=== PATIENT | female | born 1945 ===

== ENCOUNTER 2018-11-20 15:11 | Emergency (ER) | payer MEDICARE, OTHER ==
[~2018-11-20] VITALS: Ht 165.1 cm; Wt 113.4 kg
--- OUTSIDE RECORDS SUMMARY | ~2018-11-20 | XMS | Clinical Summary ---
Demographics + + + | Address | [address] | | | [place] [address] | + + + | Home Phone | | + + + | Preferred Language | Unknown | + + + | Marital Status | Single | + + + | Nondenominational Affiliation | 1073 | + + + | Race | Unknown | + + + | Ethnic Group | Unknown | + + + Author + + + | Author | [facility] | | | and [place] | + + + | Organization | [facility] | | | and [place] | + + + | Address | Unknown | + + + | Phone | Unavailable | + + + Support + + + + + | Name | Relationship | Address | Phone | + + + + + | Pham Carlson | ECON | [address] | | | | | [address] [facility] [place] | | | | | [address] | | + + + + + | David Roa | ECON | Unknown | | | M/Ana Paula M | | | | + + + + + Care Team Providers + +------+ + | Care Bandage Maker Name | Role | Phone | + +------+ + | Gabriel Nunez MD | PP | | + +------+ + Allergies + + + + + + | Active Allergy | Reactions | Severity | Noted | Comments | | | | | Date | | + + + + + + | Hydrochlorothiazide | | | 06/04/20 | | | | | | 17 | | + + + + + + Medications + + + +---------+------+------+-------+ | Medication | Sig | Dispensed | Refills | Star | End | Statu | | | | | | t | Date | s | | | | | | Date | | | + + + +---------+------+------+-------+ | amLODIPine | Take 10 mg by mouth | | 0 | | | Activ | | (NORVASC) 10 MG | Daily. | | | | | e | | tablet | | | | | | | + + + +---------+------+------+-------+ | atenolol | Take 25 mg by mouth | | 0 | | | Activ | | (TENORMIN) 25 mg | Daily. | | | | | e | | tablet | | | | | | | + + + +---------+------+------+-------+ | cyanocobalamin | Take 5,000 mcg by | | 0 | | | Activ | | (VITAMIN B-12) 1000 | mouth Daily. | | | | | e | | MCG tablet | | | | | | | + + + +---------+------+------+-------+ | | Take by mouth. Take | | 0 | | | Activ | | B-Nberyspbaerh-Ohpxp | 1/2 tablet daily | | | | | e | | (DEPLIN 15 PO) | | | | | | | + + + +---------+------+------+-------+ | FLUoxetine | Take 40 mg by mouth | | 0 | | | Activ | | (PROZAC) 40 MG | Daily. | | | | | e | | capsule | | | | | | | + + + +---------+------+------+-------+ | gabapentin | Take 300 mg by mouth | | 0 | | | Activ | | (NEURONTIN) 300 mg | 2 times daily. | | | | | e | | capsule | | | | | | | + + + +---------+------+------+-------+ | gemfibrozil | Take 600 mg by mouth | | 0 | | | Activ | | (LOPID) 600 mg | 2 times daily | | | | | e | | tablet | (before meals). | | | | | | + + + +---------+------+------+-------+ | pyridoxine | Take 100 mg by mouth | | 0 | | | Activ | | (VITAMIN B-6) 100 mg | Daily. | | | | | e | | tabletIndications: | | | | | | | | Chronic kidney | | | | | | | | disease, stage III | | | | | | | | (moderate) (HCC), | | | | | | | | Essential | | | | | | | | hypertension, | | | | | | | | benign, Mixed | | | | | | | | hyperlipidemia | | | | | | | + + + +---------+------+------+-------+ | fish oil 1,000 mg | Take 1,000 mg by | | 0 | | | Activ | | capsuleIndications: | mouth 2 times daily. | | | | | e | | Chronic kidney | | | | | | | | disease, stage III | | | | | | | | (moderate) (HCC), | | | | | | | | Essential | | | | | | | | hypertension, | | | | | | | | benign, Mixed | | | | | | | | hyperlipidemia | | | | | | | + + + +---------+------+------+-------+ | ergocalciferol | Take 1 capsule by | 30 | 0 | 07/ | | Activ | | (VITAMIN D-2) 50,000 | mouth Twice a week. | capsule | | 6/20 | | e | | units | | | | 18 | | | | capsuleIndications: | | | | | | | | Chronic kidney | | | | | | | | disease, stage III | | | | | | | | (moderate) (HCC), | | | | | | | | Essential | | | | | | | | hypertension, | | | | | | | | Hypertriglyceridemia | | | | | | | | , Metabolic syndrome | | | | | | | + + + +---------+------+------+-------+ | lisinopril | Take 1 tablet by | 90 | 3 | 01/18 | | Activ | | (PRINIVIL,ZESTRIL) | mouth Daily. | tablet | | 01/07 | | e | | 30 MG | | | | 18 | | | | tabletIndications: | | | | | | | | Chronic kidney | | | | | | | | disease, stage III | | | | | | | | (moderate) (HCC), | | | | | | | | Essential | | | | | | | | hypertension, | | | | | | | | Hypertriglyceridemia | | | | | | | | , Metabolic syndrome | | | | | | | + + + +---------+------+------+-------+ | calcium, as | Take 600 mg by mouth | | 0 | | | Activ | | carbonate, (CALCIUM | Daily. | | | | | e | | 600) 600 MG | | | | | | | | TABSIndications: | | | | | | | | Essential | | | | | | | | hypertension, | | | | | | | | Chronic kidney | | | | | | | | disease, stage III | | | | | | | | (moderate) (HCC), | | | | | | | | Hypertriglyceridemia | | | | | | | | , Metabolic syndrome | | | | | | | + + + +---------+------+------+-------+ | chlorthalidone 25 | Take 1 tablet by | 60 | 5 | 04/0 | | Activ | | mg tablet | mouth Daily. | tablet | | 08/09 | | e | | | | | | 19 | | | + + + +---------+------+------+-------+ Active Problems + + + | Problem | Noted Date | + + + | Chronic kidney disease, stage III (moderate) | 06/10/2017 | + + + | Anxiety | 06/04/2017 | + + + | Depression | 06/04/2017 | + + + | Fuchs' corneal dystrophy | 06/04/2017 | + + + | Essential hypertension | 06/04/2017 | + + + | Hypertriglyceridemia | 06/04/2017 | + + + | Hypokalemia | 06/04/2017 | + + + | Impaired fasting glucose | 06/04/2017 | + + + | OCD (obsessive compulsive disorder) | 06/04/2017 | + + + Resolved Problems + + + + | Problem | Noted | Resolved | | | Date | Date | + + + + | Renal insufficiency | 06/04/20 | | | | 17 | 8 | + + + + Encounters +--------+ + + + + | Date | Type | Specialty | Care Team | Description | +--------+ + + + + | 10/19/ | Off-Site | | Maggie Iglesias | Essential | | 2018 | Visit | | M DO | hypertension | | | | | | (Primary Dx); | | | | | | Chronic kidney | | | | | | disease, stage III | | | | | | (moderate) (HCC); | | | | | | Hypertriglyceridemia | | | | | | ; Metabolic syndrome | +--------+ + + + + | 10/16/ | Abstract | | Maggie Iglesias | | | 2018 | | | M, DO | | +--------+ + + + + from Last 3 Months Family History + + +------+ + | Medical History | Relation | Name | Comments | + + +------+ + | Abdominal aortic | Father | | | | aneurysm | | | | + + +------+ + | Heart disease | Father | | | + + +------+ + | Diabetes | Mother | | | + + +------+ + | Other (see comment) | Mother | | sepsis | + + +------+ + | Kidney disease | Neg Hx | | | + + +------+ + + +------+ + + | Relation | Name | Status | Comments | + +------+ + + | Father | | | | | | | (Age | | | | | 88) | | + +------+ + + | Mother | | | | | | | (Age | | | | | 85) | | + +------+ + + Social History + +-------+ +--------+------+ | Tobacco Use | Types | Packs/Day | Years | Date | | | | | Used | | + +-------+ +--------+------+ | Never Smoker | | | | | + +-------+ +--------+------+ + +---+---+---+ | Smokeless Tobacco: | | | | | Never Used | | | | + +---+---+---+ + + +---------+ + | Alcohol Use | Drinks/We | oz/Week | Comments | | | ek | | | + + +---------+ + | No | | | | + + +---------+ + + + + | Sex Assigned at | Date Recorded | | | | + + + | Not on file | | + + + + + + + | Job Start Date | Occupation | Industry | + + + + | Not on file | Not on file | Not on file | + + + + + + + + | Travel History | Travel Start | Travel End | + + + + + + | No recent travel history available. | + + Last Filed Vital Signs + + + + | Vital Sign | Reading | Time Taken | + + + + | Blood Pressure | 190/60 | 10/19/20181607 PDT | + + + + | Pulse | 104 | 08/27/20171407 PST | + + + + | Temperature | 36 C (96.8 F) | 10/19/20181607 PDT | + + + + | Respiratory Rate | 16 | 08/27/20171407 PST | + + + + | Oxygen Saturation | 94% | 08/27/20171407 PST | + + + + | Inhaled Oxygen | - | - | | Concentration | | | + + + + | Weight | 105.4 kg (232 lb 5.8 | 10/19/20181607 PDT | | | oz) | | + + + + | Height | 162.6 cm (5' 4") | 08/27/20171407 PST | + + + + | Body Mass Index | 39.89 | 08/27/20171407 PST | + + + + Plan of Treatment +--------+ + + + + | Date | Type | Specialty | Care Team | Description | +--------+ + + + + | 05/17/ | Off-Site | | Maggie Iglesias | | | 2018 | Visit | | DO [address] | | | | | | [address] | | | | | | [place] | | | | | | [address] | | | | | | | | +--------+ + + + + + + + + + | Health Maintenance | Due Date | Last Done | Comments | + + + + + | Hepatitis C | | | | | Screening | 6 | | | + + + + + | Vaccine: | | | | | Dtap/Tdap/Td (1 - | 5 | | | | Tdap) | | | | + + + + + | Breast Cancer | | | | | Screening (Ages | 6 | | | | 50-74) | | | | + + + + + | Colorectal Cancer | | | | | Screening | 6 | | | | (Colonoscopy) | | | | + + + + + | Vaccine: Zoster (1 | | | | | of 2) | 6 | | | + + + + + | Adult Annual | | | | | Wellness Visit | 5 | | | + + + + + | Vaccine: | | 06/03/2017 | | | Pneumococcal 65+ | 8 | | | | Low/Medium Risk (2 | | | | | of 2 - PCV13) | | | | + + + + + | Vaccine: Influenza | | 06/03/2017, 07/08/2009 | | | (Season Ended) | 9 | | | + + + + + Procedures + +--------+ + + + | Procedure Name | Priori | Date/Time | Associated Diagnosis | Comments | | | ty | | | | + +--------+ + + + | LABS - EXTERNAL SCAN | | 10/15/2018 | | Results for this | | | | 0:00 PDT | | procedure are in the | | | | | | results section. | + +--------+ + + + | EXTERNAL LAB: | Routin | 10/15/2018 | | Results for this | | VITAMIN D, | e | | | procedure are in the | | 25-HYDROXY | | | | results section. | + +--------+ + + + | EXTERNAL LAB: LEVI | Routin | 10/15/2018 | | Results for this | | INTACT | e | | | procedure are in the | | | | | | results section. | + +--------+ + + + | EXTERNAL LAB: SONAL | Routin | 10/15/2018 | | Results for this | | | e | | | procedure are in the | | | | | | results section. | + +--------+ + + + | EXTERNAL LAB: | Routin | 10/15/2018 | | Results for this | | GLUCOSE | e | | | procedure are in the | | | | | | results section. | + +--------+ + + + | EXTERNAL LAB: ALT | Routin | 10/15/2018 | | Results for this | | | e | | | procedure are in the | | | | | | results section. | + +--------+ + + + | EXTERNAL LAB: AST | Routin | 10/15/2018 | | Results for this | | | e | | | procedure are in the | | | | | | results section. | + +--------+ + + + | EXTERNAL LAB: | Routin | 10/15/2018 | | Results for this | | ALKALINE PHOSPHATASE | e | | | procedure are in the | | | | | | results section. | + +--------+ + + + | EXTERNAL LAB: | Routin | 10/15/2018 | | Results for this | | BILIRUBIN, TOTAL | e | | | procedure are in the | | | | | | results section. | + +--------+ + + + | EXTERNAL LAB: | Routin | 10/15/2018 | | Results for this | | ALBUMIN | e | | | procedure are in the | | | | | | results section. | + +--------+ + + + | EXTERNAL LAB: | Routin | 10/15/2018 | | Results for this | | PROTEIN, TOTAL | e | | | procedure are in the | | | | | | results section. | + +--------+ + + + | EXTERNAL LAB: | Routin | 10/15/2018 | | Results for this | | PHOSPHORUS | e | | | procedure are in the | | | | | | results section. | + +--------+ + + + | EXTERNAL LAB: | Routin | 10/15/2018 | | Results for this | | CALCIUM | e | | | procedure are in the | | | | | | results section. | + +--------+ + + + | EXTERNAL LAB: CBC | Routin | 10/15/2018 | | Results for this | | | e | | | procedure are in the | | | | | | results section. | + +--------+ + + + | EXTERNAL LAB: EGFR | Routin | 10/15/2018 | | Results for this | | | e | | | procedure are in the | | | | | | results section. | + +--------+ + + + | EXTERNAL LAB: | Routin | 10/15/2018 | | Results for this | | CREATININE | e | | | procedure are in the | | | | | | results section. | + +--------+ + + + | EXTERNAL LAB: CARBON | Routin | 10/15/2018 | | Results for this | | DIOXIDE | e | | | procedure are in the | | | | | | results section. | + +--------+ + + + | EXTERNAL LAB: | Routin | 10/15/2018 | | Results for this | | CHLORIDE | e | | | procedure are in the | | | | | | results section. | + +--------+ + + + | EXTERNAL LAB: | Routin | 10/15/2018 | | Results for this | | POTASSIUM | e | | | procedure are in the | | | | | | results section. | + +--------+ + + + | EXTERNAL LAB: SODIUM | Routin | 10/15/2018 | | Results for this | | | e | | | procedure are in the | | | | | | results section. | + +--------+ + + + from Last 3 Months Results External Lab: BUN (10/15/2018) + +--------+ + + + | Component | Value | Ref Range | Performed | Pathologist | | | | | At | Signature | + +--------+ + + + | BUN, | 24 (A) | 6 - 23 | EXTERNAL | | | External | | | LAB | | + +--------+ + + + + + | Resulting Agency Comment | + + | [facility] | + + + +---------+ + + | Performing | Address | City/State/Zipcode | Phone Number | | Organization | | | | + +---------+ + + | EXTERNAL LAB | | | | + +---------+ + + External Lab: Glucose (10/15/2018) + +---------+ + + + | Component | Value | Ref Range | Performed | Pathologist | | | | | At | Signature | + +---------+ + + + | Glucose, | 133 (A) | 70 - 100 | EXTERNAL | | | External | | | LAB | | + +---------+ + + + + + | Resulting Agency Comment | + + | [facility] | + + + +---------+ + + | Performing | Address | City/State/Zipcode | Phone Number | | Organization | | | | + +---------+ + + | EXTERNAL LAB | | | | + +---------+ + + External Lab: ALT (10/15/2018) + +-------+ + + + | Component | Value | Ref Range | Performed | Pathologist | | | | | At | Signature | + +-------+ + + + | ALT, | 28 | 7 - 52 | EXTERNAL | | | External | | | LAB | | + +-------+ + + + + + | Resulting Agency Comment | + + | [facility] | + + + +---------+ + + | Performing | Address | City/State/Zipcode | Phone Number | | Organization | | | | + +---------+ + + | EXTERNAL LAB | | | | + +---------+ + + External Lab: AST (10/15/2018) + +-------+ + + + | Component | Value | Ref Range | Performed | Pathologist | | | | | At | Signature | + +-------+ + + + | AST, | 27 | 13 - 39 | EXTERNAL | | | External | | | LAB | | + +-------+ + + + + + | Resulting Agency Comment | + + | [facility] | + + + +---------+ + + | Performing | Address | City/State/Zipcode | Phone Number | | Organization | | | | + +---------+ + + | EXTERNAL LAB | | | | + +---------+ + + External Lab: Alkaline Phosphatase (10/15/2018) + +-------+ + + + | Component | Value | Ref Range | Performed | Pathologist | | | | | At | Signature | + +-------+ + + + | ALP, | 90 | 31 - 130 | EXTERNAL | | | External | | | LAB | | + +-------+ + + + + + | Resulting Agency Comment | + + | [facility] | + + + +---------+ + + | Performing | Address | City/State/Zipcode | Phone Number | | Organization | | | | + +---------+ + + | EXTERNAL LAB | | | | + +---------+ + + External Lab: Bilirubin, Total (10/15/2018) + +-------+ + + + | Component | Value | Ref Range | Performed | Pathologist | | | | | At | Signature | + +-------+ + + + | Bilirubin, | 0.5 | 0 - 1.2 | EXTERNAL | | | Total, | | | LAB | | | External | | | | | + +-------+ + + + + + | Resulting Agency Comment | + + | [facility] | + + + +---------+ + + | Performing | Address | City/State/Zipcode | Phone Number | | Organization | | | | + +---------+ + + | EXTERNAL LAB | | | | + +---------+ + + External Lab: Albumin (10/15/2018) + +-------+ + + + | Component | Value | Ref Range | Performed | Pathologist | | | | | At | Signature | + +-------+ + + + | Albumin, | 4.5 | 3.5 - 5 | EXTERNAL | | | External | | | LAB | | + +-------+ + + + + + | Resulting Agency Comment | + + | [facility] | + + + +---------+ + + | Performing | Address | City/State/Zipcode | Phone Number | | Organization | | | | + +---------+ + + | EXTERNAL LAB | | | | + +---------+ + + External Lab: Protein, Total (10/15/2018) + +-------+ + + + | Component | Value | Ref Range | Performed | Pathologist | | | | | At | Signature | + +-------+ + + + | Protein, | 7.3 | 6 - 8.3 | EXTERNAL | | | Total, | | | LAB | | | External | | | | | + +-------+ + + + + + | Resulting Agency Comment | + + | [facility] | + + + +---------+ + + | Performing | Address | City/State/Zipcode | Phone Number | | Organization | | | | + +---------+ + + | EXTERNAL LAB | | | | + +---------+ + + External Lab: Phosphorus (10/15/2018) + +-------+ + + + | Component | Value | Ref Range | Performed | Pathologist | | | | | At | Signature | + +-------+ + + + | Phosphorus, | 3 | 2.5 - 5 | EXTERNAL | | | External | | | LAB | | + +-------+ + + + + + | Resulting Agency Comment | + + | [facility] | + + + +---------+ + + | Performing | Address | City/State/Zipcode | Phone Number | | Organization | | | | + +---------+ + + | EXTERNAL LAB | | | | + +---------+ + + External Lab: Calcium (10/15/2018) + +-------+ + + + | Component | Value | Ref Range | Performed | Pathologist | | | | | At | Signature | + +-------+ + + + | Calcium, | 10.2 | 8.5 - 10.3 | EXTERNAL | | | External | | | LAB | | + +-------+ + + + + + | Resulting Agency Comment | + + | [facility] | + + + +---------+ + + | Performing | Address | City/State/Zipcode | Phone Number | | Organization | | | | + +---------+ + + | EXTERNAL LAB | | | | + +---------+ + + External Lab: Carbon Dioxide (10/15/2018) + +-------+ + + + | Component | Value | Ref Range | Performed | Pathologist | | | | | At | Signature | + +-------+ + + + | Carbon | 23 | | EXTERNAL | | | Dioxide, | | | LAB | | | External | | | | | + +-------+ + + + + + | Resulting Agency Comment | + + | [facility] | + + + +---------+ + + | Performing | Address | City/State/Zipcode | Phone Number | | Organization | | | | + +---------+ + + | EXTERNAL LAB | | | | + +---------+ + + External Lab: Chloride (10/15/2018) + +-------+ + + + | Component | Value | Ref Range | Performed | Pathologist | | | | | At | Signature | + +-------+ + + + | Chloride, | 106 | 95 - 112 | EXTERNAL | | | External | | | LAB | | + +-------+ + + + + + | Resulting Agency Comment | + + | [facility] | + + + +---------+ + + | Performing | Address | City/State/Zipcode | Phone Number | | Organization | | | | + +---------+ + + | EXTERNAL LAB | | | | + +---------+ + + External Lab: Potassium (10/15/2018) + +-------+ + + + | Component | Value | Ref Range | Performed | Pathologist | | | | | At | Signature | + +-------+ + + + | Potassium, | 4.1 | 3.6 - 5.1 | EXTERNAL | | | External | | | LAB | | + +-------+ + + + + + | Resulting Agency Comment | + + | [facility] | + + + +---------+ + + | Performing | Address | City/State/Zipcode | Phone Number | | Organization | | | | + +---------+ + + | EXTERNAL LAB | | | | + +---------+ + + External Lab: Sodium (10/15/2018) + +-------+ + + + | Component | Value | Ref Range | Performed | Pathologist | | | | | At | Signature | + +-------+ + + + | Sodium, | 143 | 132 - 143 | EXTERNAL | | | External | | | LAB | | + +-------+ + + + + + | Resulting Agency Comment | + + | [facility] | + + + +---------+ + + | Performing | Address | City/State/Zipcode | Phone Number | | Organization | | | | + +---------+ + + | EXTERNAL LAB | | | | + +---------+ + + External Lab: Vitamin D, 25-Hydroxy (10/15/2018) + +-------+ + + + | Component | Value | Ref Range | Performed | Pathologist | | | | | At | Signature | + +-------+ + + + | Vitamin D, | 49 | 30 - 100 | EXTERNAL | | | 25-Hydroxy, | | | LAB | | | External | | | | | + +-------+ + + + + + | Specimen | + + | Blood | + + + + | Resulting Agency Comment | + + | [facility] | + + + +---------+ + + | Performing | Address | City/State/Zipcode | Phone Number | | Organization | | | | + +---------+ + + | EXTERNAL LAB | | | | + +---------+ + + External Lab: PTH, Intact (10/15/2018) + +-------+ + + + | Component | Value | Ref Range | Performed | Pathologist | | | | | At | Signature | + +-------+ + + + | PTH Intact, | 46.66 | 15 - 65 | | | | External | | | | | + +-------+ + + + + + | Specimen | + + | | + + External Lab: CBC (10/15/2018) + + + + + + | Component | Value | Ref Range | Performed | Pathologist | | | | | At | Signature | + + + + + + | WBC, | 8.2 | 4.5 - 11 | EXTERNAL | | | External | | | LAB | | + + + + + + | HGB, | 13.8 | 12 - 16 | EXTERNAL | | | External | | | LAB | | + + + + + + | HCT, | 42.4 | 35 - 45 | EXTERNAL | | | External | | | LAB | | + + + + + + | PLT, | 342 | 140 - 440 | EXTERNAL | | | External | | | LAB | | + + + + + + | RBC, | 4.82 | 3.8 - 5.1 | EXTERNAL | | | External | | | LAB | | + + + + + + | MCV, | 88 | 81 - 99 | EXTERNAL | | | External | | | LAB | | + + + + + + | RDW, | 15.1 (A) | 10.5 - 15 | EXTERNAL | | | External | | | LAB | | + + + + + + + + | Resulting Agency Comment | + + | [facility] | + + + +---------+ + + | Performing | Address | City/State/Zipcode | Phone Number | | Organization | | | | + +---------+ + + | EXTERNAL LAB | | | | + +---------+ + + External Lab: eGFR (10/15/2018) + +-------+ + + + | Component | Value | Ref Range | Performed | Pathologist | | | | | At | Signature | + +-------+ + + + | eGFR, | 37 | | EXTERNAL | | | External | | | LAB | | + +-------+ + + + + + | Specimen | + + | Blood | + + + + | Resulting Agency Comment | + + | [facility] | + + + +---------+ + + | Performing | Address | City/State/Zipcode | Phone Number | | Organization | | | | + +---------+ + + | EXTERNAL LAB | | | | + +---------+ + + External Lab: Creatinine (10/15/2018) + +---------+ + + + | Component | Value | Ref Range | Performed | Pathologist | | | | | At | Signature | + +---------+ + + + | Creatinine, | 1.4 (A) | 0.7 - 1.18 | EXTERNAL | | | External | | | LAB | | + +---------+ + + + + + | Specimen | + + | Blood | + + + + | Resulting Agency Comment | + + | [facility] | + + + +---------+ + + | Performing | Address | City/State/Zipcode | Phone Number | | Organization | | | | + +---------+ + + | EXTERNAL LAB | | | | + +---------+ + + LABS - EXTERNAL SCAN (10/15/2018 0:00 PDT) + + + | Narrative | Performed At | + + + | Ordered by an | | | unspecified provider. | | + + + from Last 3 Months Insurance +-------+--------+ +--------+ + +------+ | Payer | Benefi | Subscriber | Effect | Phone | Address | Type | | | t Plan | ID | aidan | | | | | | / | | Dates | | | | | | Group | | | | | | +-------+--------+ +--------+ + +------+ | [employer] | [employer] | [id number] | [birth year] | [phone] | [address] | PPO | | | [place] | | [address] | 9 | [id number] | | | | [place] | | sent | | [place], | | | | [place] | | | | [place] [address] | | +-------+--------+ +--------+ + +------+ + +--------+ +--------+ + + | Guarantor Name | Accoun | Relation to | Date | Phone | Billing Address | | | t Type | Patient | of | | | | | | | | | | + +--------+ +--------+ + + | Rebecca Roa | Person | Self [birth year] | [address] | | | al/Fam | | [address] | [phone] | [place] [address] | | | jenifer | | | 0 (Home) | | + +--------+ +--------+ + + Advance Directives Patient has advance care planning documents on file. For more information, please contact:[facility] [place] [address]
--- OUTSIDE RECORDS SUMMARY | ~2018-11-20 | XMS | Clinical Summary ---
Demographics + + + | Address | [address] | | | [place] [address] | + + + | Home Phone | | + + + | Preferred Language | Unknown | + + + | Marital Status | Single | + + + | Adventism Affiliation | 1073 | + + + | Race | Unknown | + + + | Ethnic Group | Unknown | + + + Author + + + | Author | [facility] | | | and [place] | + + + | Organization | [facility] | | | and [place] | + + + | Address | Unknown | + + + | Phone | Unavailable | + + + Support + + + + + | Name | Relationship | Address | Phone | + + + + + | Pham Carlson | ECON | [address] | | | | | [facility] [place] | | | | | [address] | | + + + + + | David Roa | ECON | Unknown | | | M/Ana Paula M | | | | + + + + + Care Team Providers + +------+ + | Care Chute Man Name | Role | Phone | + [...] 0 | | | Activ | | R-Qhujbabasucv-Lksmt | 1/2 tablet daily | | | [...] | Visit | | DO Aziza [address] | | | | | | [address] | | | | | | [place] | | | | | | [address] | | | | | | | [...] + +------+ | MODA | MODA | [id number] | 07/21/19 | [phone] | [address] | PPO | | | [employer] | | 17-Pre | 9 | [address] | | | | [place] | | sent | | [place], | | | | [place] | | | | [place] [address] | | +-------+--------+ +--------+ + +------+ + [...] | | al/Fam | | [phone] | [phone] | [place] [address] | | | jenifer | | | 0 (Home) | | + +--------+ +--------+ + + Advance Directives Patient has advance care planning documents on file. For more information, please contact:[facility] [place] [address]
--- OUTSIDE RECORDS SUMMARY | ~2018-11-20 | XMS | Encounter Summary ---
Demographics + + + | Address | [address] | | | [place] [address] | + + + | Home Phone | | + + + | Preferred Language | Unknown | + + + | Marital Status | Single | + + + | Congregation Affiliation | 1073 | + + + | Race | Unknown | + + + | Ethnic Group | Unknown | + + + Author + + + | Author | [facility] | | | and [place] | + + + | Organization | [facility] | | | and [place] | + + + | Address | Unknown | + + + | Phone | Unavailable | + + + Support + + + + + | Name | Relationship | Address | Phone | + + + + + | Pham Carlson | ECON | [address] | | | | | [facility] [place] | | | | | [address] | | + + + + + | David Roa | ECON | Unknown | | | M/Ana Paula M | | | | + + + + + Care Team Providers + +------+ + | Care E Learning Manager Name | Role | Phone | + +------+ + | Gabriel Nunez MD | PCP | | + +------+ + Reason for Visit Evaluate & Treat (Routine) + +--------+ + + + + | Status | Reason | Specialty | Diagnoses / | Referred By | Referred To | | | | | Procedures | Contact | Contact | + +--------+ + + + + | Authorized | | Nephrology | Diagnoses | Enrique, | [facility] | | | | | Chronic | Gabriel | Nephrology | | | | | kidney | MD Doe | [address] | | | | | disease, | [address] | [address] | | | | | stage 3 | [place] | [place], | | | | | (moderate) | [place] | [place] [address] | | | | | (HCC) | [address] | Phone: | | | | | Procedures | Phone: | [phone] | | | | | [place] OFFICE | [phone] | Fax: | | | | | OUTPATIENT | Fax: | [phone] | | | | | VISIT 25 | [phone] | | | | | | MINUTES | | | + +--------+ + + + + Encounter Details +--------+ + + + + | Date | Type | Department | Care Team | Description | +--------+ + + + + | 10/19/ | Off-Site | [facility] [place] | Maggie Iglesias | Essential | | 2019 | Visit | NEPHROLOGY [address] | M, DO [address] | hypertension | | | | [address] | [place] | (Primary Dx); | | | | [place], [place] | [place], [place] | Chronic kidney | | | | [address] | [address] | disease, stage III | | | | [phone] | | (moderate) ([facility]); | | | | | | Hypertriglyceridemia | | | | | | ; Metabolic syndrome | +--------+ + + + + Social History + +-------+ +--------+------+ [...] recent travel history available. | + + documented as of this encounter Last Filed Vital Signs + + + + | Vital Sign | Reading | Time Taken | + + + + | Blood Pressure | 190/60 | 10/19/2018 1608 PDT | + + + + | Pulse | - | - | + + + + | Temperature | 36 C (96.8 F) | 10/19/20181607 PDT | + + + + | Respiratory Rate | - | - | + + + + | Oxygen Saturation | - | - | + + + + | Inhaled Oxygen | - | - | | Concentration | | | + + + + | Weight | 105.4 kg (232 lb 5.8 | 10/19/20181607 PDT | | | oz) | | + + + + | Height | - | - | + + + + | Body Mass Index | 39.89 | 08/27/2017 1408 PST | + + + + documented in this encounter Patient Instructions Patient Instructions Maggie Iglesias DO - 10/19/2018 16:00 PDT1. Start Chlorthalidone 25 mg, Q day. 2. Check some home BP readings 2 x per week. 3. Avoid pre-processed or Microwave food, it is too high in salt and calories. 4. Recheck your K+ in one month. 5. You will also check a Blood and Urine test one week before the next Office. documented in this encounter Progress Notes Maggie Iglesias DO - 10/19/2018 1600 PDTFormatting of this note might be different fro m the original. Subjective: NEPHROLOGY Patient ID: Rebecca Roa is a 73 y.o. female. Follow up for this 72 YOWF with H/O CKD suspicious for hypertensive nephrosclerosis, who h as no heavy proteinuria. She denies any new edema, BANGURA, hematuria, or chest pain. She unfort unately has not collected any home BP readings, as again requested. She is accompanied by her very attentive Sister, Mary, who verifies that Rebecca is still unfortunately, very seden tary, and eating a very rich, high CHO diet, with a great deal of "microwave food." She is not walking or pursuing any form of exercise, as discussed previous. PAST MEDICAL HISTORY: 1. Hypertension 7 years. 2. Hyperlipidemia 7 years. 3. Fuchs corneal dystrophy in the right eye followed by her Window Assembler. 4. Previous history of depression. 5. Centripetal obesity. Outpatient Prescriptions Marked as Taking for the 10/19/18 encounter (Off-Site Visit) with Hilario Iglesias DO Medication Sig Dispense Refill amLODIPine (NORVASC) 10 MG tablet Take 10 mg by mouth Daily. atenolol (TENORMIN) 25 mg tablet Take 25 mg by mouth Daily. calcium, as carbonate, (CALCIUM 600) 600 MG TABS Take 600 mg by mouth Daily. cyanocobalamin (VITAMIN B-12) 1000 MCG tablet Take 5,000 mcg by mouth Daily. ergocalciferol (VITAMIN D-2) 50,000 units capsule Take 1 capsule by mouth Twice a week. 30 capsule fish oil 1,000 mg capsule Take 1,000 mg by mouth 2 times daily. FLUoxetine (PROZAC) 40 MG capsule Take 40 mg by mouth Daily. gabapentin (NEURONTIN) 300 mg capsule Take 300 mg by mouth 2 times daily. gemfibrozil (LOPID) 600 mg tablet Take 600 mg by mouth 2 times daily (before meals). F-Sdopblhkjopg-Bdbto (DEPLIN 15 PO) Take by mouth. Take 1/2 tablet daily lisinopril (PRINIVIL,ZESTRIL) 30 MG tablet Take 1 tablet by mouth Daily. 90 tablet 3 pyridoxine (VITAMIN B-6) 100 mg tablet Take 100 mg by mouth Daily. Allergies Allergen Reactions Hydrochlorothiazide Review of Systems Objective: BP 190/60 | Temp 36 C (96.8 F) | Wt 105.4 kg (232 lb 5.8 oz) | BMI 39.8 9 kg/m Physical Exam Heart: Regular rate and rhythm with no S3, S4, murmur or rub. Lungs: CTA bilaterally. No rales or wheezes. Abdomen: soft, very obese at waistline, nontender, NABS. Extremities: no edema, clubbing, cyanosis. Lab Results Component Value Date NAEX 143 10/15/2018 KEX 4.1 10/15/2018 CLEX 106 10/15/2018 CO2EX 23 10/15/2018 BUNEX 24 (A) 10/15/2018 CREEX 1.4 (A) 10/15/2018 EGFREX 37 10/15/2018 GLUEX 133 (A) 10/15/2018 PHOSEX 3 10/15/2018 PTHEX 46.66 10/15/2018 GEJ6UGQ 5.8 04/22/2017 Lab Results Component Value Date VITDEX 49 10/15/2018 Lab Results Component Value Date WBCEX 8.2 10/15/2018 HGBEX 13.8 10/15/2018 HCTEX 42.4 10/15/2018 PLTEX 342 10/15/2018 Urine Pro/Cr ratio = Lab Results Component Value Date PROTEX 0.1 08/25/2017 Assessment: 1. Stage III CKD, suspicious for hypertensive nephrosclerosis-- Scr is stable for now. 2. Hypertension-- still with suboptimal control. However, would be ideal to observe some home readings, as discussed? 3. Hyperlipidemia-- she may benefit from stain Rx? 4. Centripetal obesity with probable metabolic syndrome-- unchanged. 5. Probable Pre-diabetes? Plan: 1. I had a lengthy discussion with Rebecca and her Sister, that w/o some form of lifestyle m odification, drug Rx will have only limited success. She appears to be very sedentary, with a very high caloric, high salt diet, from her Hx? 2. I strongly recommended a change to a more plant based, DASH diet, and away from process ed food. 3. In light of the BP, will add chlorthalidone 25 mg, Q day to her regimen. (Her previous HCTZ was not a true drug eruption, per her Sister, Mary, and appears to have been GI intol erance.) 4. Additionally, I urged Rebecca and her Sister, to try walking at least 30 min. daily, for some form of aerobic exercise. 5. Will plan to recheck her BMP in 1 mo. to recheck her K+. 6. Will plan to see her back in 4 months at the CKD Clinic at [place], [place]. She will have a CBC, CMP, PO4, HbA1c, iPTH, lipid profile, and spot Urine Pro/Cr ratio one week prior to that. : Gabriel Nunez M.D. documented in this e ncounter Plan of Treatment +--------+ + + + + | Date | Type | Specialty | Care Team | Description | +--------+ + + + + | 05/17/ | Off-Site | Nephrology | Maggie Iglesias | | | 2018 | Visit | | DO [address] | | | | | | [address] | | | | | | [place] | | | | | | [address] | | | | | | | | +--------+ + + + + documented as of this encounter Visit Diagnoses + + | Diagnosis | + + | Essential hypertension - Primary Unspecified essential hypertension | + + | Chronic kidney disease, stage III (moderate) (HCC) Chronic kidney disease, Stage III | | (moderate) | + + | Hypertriglyceridemia Pure hyperglyceridemia | + + | Metabolic syndrome Dysmetabolic Syndrome X | + + documented in this encounter
--- OUTSIDE RECORDS SUMMARY | ~2018-11-20 | XMS | Clinical Summary ---
Demographics + + + | Address | [address] | | | [place] [address] | + + + | Home Phone | | + + + | Preferred Language | Unknown | + + + | Marital Status | Unknown | + + + | Mormonism Affiliation | Unknown | + + + | Race | Unknown | + + + | Ethnic Group | Unknown | + + + Author + + + | Author | Ally Crestock | + + + | Organization | [facility] [employer] [facility] | + + + | Address | Unknown | + + + | Phone | Unavailable | + + + Care Team Providers + +------+ + | Care Radio Electronics Officer Name | Role | Phone | + +------+ + | Gabriel Nunez MD | PP | Unavailable | + +------+ + Allergies Not on File Current Medications Not on file Active Problems Not on file Social History + +-------+ +--------+------+ | Tobacco Use | Types | Packs/Day | Years | Date | | | | | Used | | + +-------+ +--------+------+ | Never Assessed | | | | | + +-------+ +--------+------+ + + + | Sex Assigned at | Date Recorded | | | | + + + | Not on file | | + + + Plan of Treatment Not on file Results Not on filefrom Last 3 Months Insurance + +--------+ +------+-------+---------+ | Payer | Benefi | Subscriber | Type | Phone | Address | | | t Plan | ID | | | | | | / | | | | | | | Group | | | | | + +--------+ +------+-------+---------+ | [employer] | [employer]DS | [id number] | | | | | | HEALTH | | | | | | | PLAN | | | | | + +--------+ +------+-------+---------+ + +--------+ +--------+ + + | Guarantor Name | Accoun | Relation to | Date | Phone | Billing Address | | | t Type | Patient | of | | | | | | | | | | + +--------+ +--------+ + + | [address] | Person | Self | [birth year] | Work: | [address] | | | al/Fam | | 1946 | [phone] | [place] [address] | | | jenifer | | | [phone]: | | | | | | | | | | | | | | [phone] | | | | | | [phone] | | + +--------+ +--------+ + +"
--- OUTSIDE RECORDS SUMMARY | ~2018-11-20 | XMS | Encounter Summary ---
Demographics + + + | Address | [address] | | | [place] [address] | + + + | Home Phone | | + + + | Preferred Language | Unknown | + + + | Marital Status | Single | + + + | Sikh Affiliation | 1073 | + + + | Race | Unknown | + + + | Ethnic Group | Unknown | + + + Author + + + | Author | [facility] | | | and [place] | + + + | Organization | [facility] | | | and [place] [...] [place], [place] | | | | | [address] | | + + + + + | David Roa | ECON | Unknown | | | M/Ana Paula M | | | | + + + + + Care Team Providers + +------+ + | Care Sound Recording Technician Name | Role | Phone | + +------+ + | Gabriel Nunez MD | PCP | | + +------+ + Encounter Details +--------+ + + + + | Date | Type | Department | Care Team | Description | +--------+ + + + + | 10/16/ | Abstract | [facility] [place] | Maggie Iglesias | | | 2018 | | NEPHROLOGY [address] | M, DO [address] | | | | | [address] | [place] | | | | | [place], [place] | [place], [place] | | | | | [address] | [address] | | | | | [phone] | | | +--------+ + + + + Social [...] + + documented as of this encounter Plan of Treatment +--------+ + + + + | Date | Type | Specialty | Care Team | Description | +--------+ + + + + | 05/17/ | Off-Site | Nephrology | Maggie Iglesias | | | 2018 | Visit | | Aziza, DO [address] | | | | | | [address] | | | | | | [place] | | | | | | [address] | | | | | | | | +--------+ + + + + documented as of this encounter Procedures + +--------+ + + + | [...] +--------+ + + + | EXTERNAL LAB: RITA | Routin | 10/15/2018 | | Results [...] +--------+ + + + | EXTERNAL LAB: NENITA | Routin | 10/15/2018 | | Results [...] section. | + +--------+ + + + documented in this encounter Results External Lab: Vitamin D, 25-Hydroxy (10/15/2018) + [...] + | | + + External Lab: SONAL (10/15/2018) + +--------+ + + + | [...] | + +---------+ + + External Lab: CBC (10/15/2018) + [...] | | | + +---------+ + + documented in this encounter Visit Diagnoses Not on filedocumented in this encounter"
--- OUTSIDE RECORDS SUMMARY | ~2018-11-20 | XMS | Clinical Summary ---
Demographics + + + | Address | [address] | | | [place] [address] | + + + | Home Phone | | + + + | Preferred Language | Unknown | + + + | Marital Status | Unknown | + + + | Congregation Affiliation | Unknown | + + + | Race | Unknown | + + + | Ethnic Group | Unknown | + + + Author + + + | Author | Ally Applause | + + + | Organization | [facility] [employer] [facility] | + + + | Address | Unknown | + + + | Phone | Unavailable | + + + Care Team Providers + +------+ + | Care Quality Assurance Analyst Name | Role | Phone | + [...] | [employer] | ODS | [id number] | | | | | | HEALTH [...] | | al/Fam | | 1946 | [phone] | [place] [address] | | | jenifer | | | [address]: | | | | | | | | | | | | | | [phone] | | | | | | | [address] | | + +--------+ +--------+ + +"
--- OUTSIDE RECORDS SUMMARY | ~2018-11-20 | XMS | Encounter Summary ---
Demographics + + + | Address | [address] | | | [place] [address] | + + + | Home Phone | | + + + | Preferred Language | Unknown | + + + | Marital Status | Single | + + + | Buddhist Affiliation | 1073 | + + + | Race | Unknown | + + + | Ethnic Group | Unknown | + + + Author + + + | Author | [facility] | | | and [place] | + + + | Organization | [facility] | | | and [place] | + + + | Address | Unknown | + + + | Phone | Unavailable | + + + Support + + + + + | Name | Relationship | Address | Phone | + + + + + | Pham Carlson | ECON | [address] | | | | | [facility] [place] | | | | | [address] | | + + + + + | David Roa | ECON | Unknown | | | M/Ana Paula M | | | | + + + + + Care Team Providers + +------+ + | Care Sleep Manager Name | Role | Phone | [...] | | [address] | [place] | | | | | [place], [place] | [place], [place] | | | | | [address] | [address] | | | | | [phone] | | | +--------+ + + + [...] | Visit | | Aziza, DO [address] | | | | | | [place] | | | | | | [place] | | | | | | [address] | | | | | | | [...]
--- OUTSIDE RECORDS SUMMARY | ~2018-11-20 | XMS | Encounter Summary ---
Demographics + + + | Address | [address] | | | [place] [address] | + + + | Home Phone | | + + + | Preferred Language | Unknown | + + + | Marital Status | Single | + + + | Zoroastrianism Affiliation | 1073 | + + + | Race | Unknown | + + + | Ethnic Group | Unknown | + + + Author + + + | Author | [facility] | | | and [place] | + + + | Organization | [facility] | | | and [place] | + + + | Address | Unknown | + + + | Phone | Unavailable | + + + Support + + + + + | Name | Relationship | Address | Phone | + + + + + | Pham Carlson | ECON | [address] | | | | | [facility] [place] | | | | | [address] | | + + + + + | David Roa | ECON | Unknown | | | M/Ana Paula M | | | | + + + + + Care Team Providers + +------+ + | Care Aircraft Fueler Name | Role | Phone | + [...] | Diagnoses | Enrique, | [facility] | | | | | Chronic | Gabriel | Nephrology | | | | | kidney | MD Doe | [address] | | | | | disease, | [address] | [address] | | | | | stage 3 | [place] | [place], | | | | | (moderate) | [place] | [place] [address] | | | | | (HCC) | [address] | Phone: | | | | | Procedures | Phone: | [phone] | | | | | [place] OFFICE | [phone] | Fax: | | | | | OUTPATIENT | Fax: | [phone] | | | | | VISIT 25 | [phone] | | | | | | MINUTES [...] | | [address] | [place] | (Primary Dx); | | | | [place], [place] | [place], [place] | Chronic kidney | | | | [address] | [address] | disease, stage III | | | | [phone] | | (moderate) ([facility]); | | | | | | Hypertriglyceridemia [...] in the right eye followed by her Business Planner. 4. Previous history of depression. 5. Centripetal [...] by mouth 2 times daily (before meals). B-Hqgcavamgfyk-Jcvhs (DEPLIN 15 PO) Take by mouth. Take [...] 10/15/2018 PHOSEX 3 10/15/2018 PTHEX 46.66 10/15/2018 SQS5YKP 5.8 04/22/2017 Lab Results Component Value Date [...] 4 months at the CKD Clinic at [place], [place]. She will have a CBC, CMP, [...] | Visit | | DO [address]iza [address] | | | | | | [address] | | | | | | [place] | | | | | | [address] | | | | | | | [...]
[2018-11-20] MEDS ORDERED: FLUOXETINE HCL40 MG PO (17:56)
[2018-11-20] MEDS ORDERED: ATENOLOL25 MG PO (17:56)
[2018-11-20] MEDS ORDERED: LISINOPRIL30 MG PO (17:56)
[2018-11-20] MEDS ORDERED: AMLODIPINE BESY10 MG PO (17:56)
[2018-11-20] MEDS ORDERED: CHLORTHALIDONE25 MG PO (17:57)
[2018-11-20] MEDS ORDERED: L-METHYLFOLATE1 EAC6 PO (17:58)
[2018-11-20] MEDS ORDERED: GEMFIBROZIL600 MG PO (17:58)
[2018-11-20] MEDS ORDERED: GABAPENTIN300 MG PO (17:58)
[2018-11-20] MEDS ORDERED: FISH OIL 1,0001 EAC2 NG (17:59)
--- NOTE | 2018-11-21 18:44 | EKG ---
[facility] [address] [place], [place] [address] Signed Atrial fibrillation Nonspecific ST abnormality Abnormal QRS-T angle, consider primary T wave abnormality Prolonged QT Abnormal ECG No previous ECGs available Confirmed by LINDA BRADLEY DO ([id number]) on 11/21/2018 6:44:44 PM Electronically Signed By: LINDA BRADLYE DO 11/21/18 1844 PATIENT NAME: BRAD MARTIN TRENT Electrocardiogram DATE OF : 45 PHYSICIAN: LINDA BRADLEY DO REPORT #: [id number] REPORT IS CONFIDENTIAL AND NOT TO BE RELEASED WITHOUT AUTHORIZATION
== END 2018-11-20 21:15 | disposition short-term general hospital (02) ==
LOC: ED 15:11
PROC: 06HY33Z Insertion of Infusion Device into Lower Vein, Percutaneous Approach (ICD-10-PCS; principal; 2018-11-20)
DX: A41.9 Sepsis, unspecified organism (principal); R65.20 Severe sepsis without septic shock; N17.9 Acute kidney failure, unspecified; K52.9 Noninfective gastroenteritis and colitis, unspecified; Z79.899 Other long term (current) drug therapy
CPT/HCPCS: 36556; 71045; 74176; 80053; 81001; 83605; 83690; 84484; 85025; 93005; 93010; 99291; J0692; J7030; J7040; J7060